=== PATIENT | female | born 1975 | race Caucasian/White ===

== ENCOUNTER → 2016-03-02 08:31 | Outpatient (CLI) | payer MEDICAID ==
[2010-09-01 12:25] VITALS: BMI 28.4
[~2016-03-02 08:31] MED LIST: DEPAKOTE250 MG PO; HYDROCODONE-APA1 TAB PO; IBUPROFEN800 MG PO; LEXAPRO20 MG PO; MULTIPLE VITAMI1 TA1 PO; XANAX0.25 MG PO
[2016-03-13 06:09] VITALS: BMI 33.2
== END | disposition home or self-care (01) ==
LOC: D.MRI 08:31
DX: M25.512 Pain in left shoulder (principal)

== ENCOUNTER 2016-03-13 05:48 | Day surgery (SDC) | payer MEDICAID ==
[2016-03-12 12:42] LABS: HEMATOCRIT 42.5 % (36.0-48.0); HEMOGLOBIN 13.7 g/dL (12-16); MCH 27.9 pg (26.0-34.0); MCHC 32.2 g/dL (31.0-37.0); MCV 86.6 fL (80.0-100.0); MEAN PLATELET VOLUME 9.7 fL (7.4-10.4); RBC 4.91 10x6/uL (4.00-5.40); RDW 12.8 % (11.5-14.5); WBC 5.4 10x3/uL (4.8-10.8)
[~2016-03-13] VITALS: Ht 160 cm; Wt 84.8 kg
[~2016-03-13 05:48] MED LIST changes: -HYDROCODONE-APA1 TAB PO
[2016-03-13 06:09] VITALS: BP 96/64; Ht 160 cm; Wt 84.8 kg
[2016-03-13] MEDS ORDERED: HYDROCODONE-APA1 TAB PO (08:43)
--- NOTE | 2016-03-13 08:52 | NUR ---
PRE OP BP 96/64
--- NOTE | 2016-03-13 10:27 | NUR ---
0945 IV DC WITH CATHER TIP INTACT
--- NOTE | 2016-03-17 07:07 | OP ---
PATIENT NAME: LEATHA GONZALEZ I MEDICAL RECORD: [id number] :79 LOCATION:[facility] ADMISSION DATE: SURGEON: RAJESH COSTELLO MD DATE OF OPERATION: 03/13/2016 PREOPERATIVE DIAGNOSES: Left shoulder rotator cuff tear, acromioclavicular joint degenerative joint disease and impingement. POSTOPERATIVE DIAGNOSES: Left shoulder rotator cuff tear, acromioclavicular joint degenerative joint disease and impingement. PROCEDURE PERFORMED: Left shoulder supraspinatus debridement with a distal clavicle excision and subacromial decompression. SURGEON: Red Costello MD ANESTHESIA: General with a block for postop pain. CONDITION: The patient tolerated the procedure well and was transferred to the recovery room in stable condition. INDICATIONS: This is a 41-year-old female, who has been having pain in her shoulder. This has been getting progressively worse. She is no longer tolerating it. She had findings suggestive of the tear as well as AC joint degenerative joint disease and impingement. We discussed risks, benefits, and alternatives. She understood and wished to proceed. OPERATIVE REPORT: The patient was taken to the operating room and placed in supine position. General anesthesia was obtained. Her left shoulder was confirmed to be the correct shoulder. She was prepped and draped in normal fashion. I did isamar portal sites and injecting them with 0.25% Marcaine with epinephrine. I then established the posterior portal into the glenohumeral joint. The glenohumeral joint was thoroughly inspected. There were no significant lesions noted on the glenoid or on the head of the humerus. The biceps tendon had a little bit of fraying on it. It did not look completely clean, but it was 85% to 90% normal. I did do some small debridements of it following the muscle around, she did have at the front, up around the area where the biceps pierces through the capsule, there was some undersurface tearing, I did debride this, but there did not appear to be any through and through injury in this area either. I therefore, took the scope out, placed it in the subacromial space, made a lateral portal and debrided the surface of the undersurface of the acromion over to the clavicle, we took off the distal clavicle, verifying the visualization that I had eliminated contact between the 2. I then went back, lifted the cuff again from above, I did not find any tears; therefore, I brought the case to a close. She was closed with 3-0 Prolene, placed in a sling, awakened and transferred to the recovery room in stable condition having tolerated the procedure well. TRANSINT:[id number] Voice Confirmation ID: [id number] DOCUMENT ID: [id number] OPERATIVE REPORT [id number] LEATHA GONZALEZ GORDON TROY MD at 0707 CC: [id number] DICTATION DATE: 03/13/16 0839 DIRECTOR BIOINFORMATICS: 03/13/16 0930 [facility] 03/13/16 [id number] [place] [address]
== END 2016-03-13 10:15 | disposition home or self-care (01) ==
LOC: D.OPS 05:48 → D.PAN 08:00 → D.OPS 10:15
PROVIDERS: Anesthesiology
DX: M75.102 Unspecified rotator cuff tear or rupture of left shoulder, not specified as traumatic (principal); M19.012 Primary osteoarthritis, left shoulder; M75.42 Impingement syndrome of left shoulder

== ENCOUNTER → 2017-08-12 09:43 | Outpatient (CLI) | payer BC ==
[2016-03-13 06:09] VITALS: BMI 33.2
[~2017-08-12 09:43] MED LIST changes: +HYDROCODONE-APA1 TAB PO
== END | disposition home or self-care (01) ==
LOC: D.MAMMO 09:43
DX: Z12.31 Encounter for screening mammogram for malignant neoplasm of breast (principal)

== ENCOUNTER 2018-08-31 09:00 | Outpatient (CLI) | payer SELFPAY ==
[2016-03-13 06:09] VITALS: BMI 33.2
== END 2018-08-31 10:00 | disposition home or self-care (01) ==
LOC: D.MAMMO 09:00
PROVIDERS: ATTEND Family Medicine
DX: R92.8 Other abnormal and inconclusive findings on diagnostic imaging of breast (principal)

== ENCOUNTER 2019-10-13 08:46 | Day surgery (SDC) | payer OTHER ==
--- NOTE | 2019-10-11 14:38 | NUR ---
PANS VITALS P. 78, 115/81, 98.7, PULSEOX 98%
[2019-10-11 15:01] LABS: BASOPHILS 0.5 % (0-2); EOSINOPHILS 7.9 % (0-7); HEMATOCRIT 42.7 % (36.0-48.0); HEMOGLOBIN 14.3 g/dL (12-16); IMMATURE GRANULOCYTES 0.4 % (0-5); LYMPHOCYTES 27.7 % (15-50); MCH 29.4 pg (26.0-34.0); MCHC 33.5 g/dL (31.0-37.0); MCV 87.7 fL (80.0-100.0); MEAN PLATELET VOLUME 9.3 fL (7.4-10.4); MONOCYTES 8.5 % (2-11); PLATELET COUNT 196 10x3/uL (130-400); RBC 4.87 10x6/uL (4.00-5.40); WBC 8.2 10x3/uL (4.8-10.8)
[~2019-10-13] VITALS: Ht 160 cm; Wt 79.4 kg
--- NOTE | ~2019-10-13 | OP ---
PATIENT NAME: LEATHA GONZALEZ I MEDICAL RECORD: [id number] :77 LOCATION:[facility] ADMISSION DATE: SURGEON: ROSETTA MIRANDA MD DATE OF OPERATION: 10/13/2019 PREOPERATIVE DIAGNOSES: 1. Pelvic pain. 2. Menorrhagia. POSTOPERATIVE DIAGNOSES: 1. Pelvic endometriosis. 2. Normal-appearing endometrial canal. PROCEDURE: Diagnostic laparoscopy, hysteroscopy, D&C. SURGEON: Rosetta Miranda MD ANESTHESIA: General endotracheal. INTRAVENOUS FLUIDS: Per anesthesia record. HYSTEROSCOPIC FLUID LOSS: Less than 50 cc of 0.9 normal saline. SPECIMENS: Included endometrial curettings. ESTIMATED BLOOD LOSS: Minimal. FINDINGS: 1. Extensive endometriosis involving the anterior and posterior cul-de-sacs, bilateral adnexa and pelvic sidewall. 2. Grossly normal-appearing external genitalia. 3. Grossly normal appearing cervix and endometrial canal. COMPLICATIONS: None apparent. PROCEDURE IN DETAIL: The patient was taken to the operating room where general anesthesia was achieved without difficulty. The patient was then prepped and draped in normal sterile fashion in the dorsal lithotomy position in the [facility]. At this point, the patient was prepped and draped and a 5-mm incision was made infraumbilically and the 5-mm bladeless trocar was used to enter the intraperitoneal space under direct visualization of the laparoscope. Following entry into the peritoneal space, the introducer was removed and the scope was replaced confirming intraperitoneal placement. The patient was insufflated and open pressure was found to be less than 3 mmHg. The patient was then insufflated and a second 5-mm port was placed approximately 5 cm above the pubic symphysis in the midline. This was done under direct visualization of the laparoscope. Survey of the abdomen and pelvis was performed. Findings were as noted. The patient was then desufflated and the skin incisions were repaired with 3-0 Vicryl in an interrupted fashion. Attention was then turned to the vagina, where the bladder had been drained of approximately 100 cc of clear yellow urine. A Graves speculum was then placed into the vagina and the cervix was grasped on its anterior lip with a single tooth tenaculum. The patient was dilated to approximately 6 cm and the hysteroscope was introduced into the uterus without resistance. Survey of the endocervical canal and the endometrium was performed. D&C was then performed in all 4 quadrants. The hysteroscope and OPERATIVE REPORT [id number] SWIM,LEATHA I tenaculum were removed and good hemostasis was noted from the tenaculum site. The patient tolerated the procedure well, transported to postanesthesia recovery stable without incident. TRANSINT:[id number] Voice Confirmation ID: [id number] DOCUMENT ID: [id number] ROSETTA MIRANDA MD CC: [id number] DICTATION DATE: 10/23/19730 COMMUTATOR ASSEMBLER: 10/23/19910 [facility] [place] 10/13/[address] [address]
[~2019-10-13 08:46] MED LIST changes: +ACETAMINOPHEN500 M1 PO; +ATIVAN0.5 MG PO; +CELEBREX200 MG PO; +CYCLOBENZAPRINE10 MG PO; +CYMBALTA60 MG PO; +IMITREX100 MG PO; +MULTI-DAY VITAM1 TAB PO; +OMEPRAZOLE20 M1 PO; +OXYBUTYNIN CHLOR5 MG PO
[2019-10-13 09:13] LABS: HCG URINE NEGATIVE (NEGATIVE)
[2019-10-13 09:19] VITALS: BP 114/78; Ht 160 cm; Wt 79.4 kg
--- NOTE | 2019-10-13 13:40 | NUR ---
1315 IV DC'D. CATHETER TIP INTACT. NO BLEEDING AT SITE AFTER HOLDING PRESSURE. BANDAID APPLIED.
--- NOTE | 2019-10-13 13:42 | NUR ---
1325 PT HAS MET CRITERIA FOR DISCHARGE HOME. WAITING ON HER TO TRANSPORT HER HOME VIA PERSONAL VEHICLE. REVIEWED DISCHARGE INSTRUCTIONS WITH PATIENT AND SHE VOICES UNDERSTANDING OF INSTRUCTIONS.
== END 2019-10-13 13:45 | disposition home or self-care (01) ==
LOC: D.OPS 08:46 → D.PAN 10:15 → D.OPS 13:45
PROVIDERS: ATTEND Obstetrics & Gynecology
DX: R10.2 Pelvic and perineal pain (principal); N92.0 Excessive and frequent menstruation with regular cycle; E04.1 Nontoxic single thyroid nodule; G43.909 Migraine, unspecified, not intractable, without status migrainosus; K21.9 Gastro-esophageal reflux disease without esophagitis; N83.209 Unspecified ovarian cyst, unspecified side